=== PATIENT | male | born 1960 ===

== ENCOUNTER 2019-08-20 08:04 | Outpatient (CLI) | payer OTHER | END 2019-08-20 08:17 | disposition home or self-care (01) | LOC: SONOGRAMA 08:04 | DX: E04.2 Nontoxic multinodular goiter (principal) ==

== ENCOUNTER 2021-08-18 11:20 | Day surgery (SDC) | payer OTHER ==
[~2021-08-18 11:20] MED LIST: ALTACE10 MG PO; BAYER THERAPY325 MG PO; FORTAMET1000 MG PO; TOPROL XL25 M1 PO; [UNRECOGNIZED DRUG - OTHER] PO
[2021-08-18] MEDS ORDERED: PERCOCET 5-3251 EACH PO (18:36)
== END 2021-08-19 00:50 | disposition home or self-care (01) ==
LOC: CIR.AMB 11:20
PROVIDERS: ATTEND Surgery
DX: N52.01 Erectile dysfunction due to arterial insufficiency (principal); N48.6 Induration penis plastica; Z20.822 Contact with and (suspected) exposure to COVID-19
CPT/HCPCS: 54400; 54360; C1813